=== PATIENT | male | born 1950 | race Caucasian/White ===

== ENCOUNTER → 2016-11-15 | Day surgery (SDC) | payer MEDICARE, BC ==
[~2016-11-15] MED LIST: AMLODIPINE PO; COZAAR100 MG PO; FUROSEMIDE40 MG PO; METOPROLOL SUCC50 MG PO; POTASSIUM CL ER PO
--- NOTE | ~2016-11-15 | OR ---
Unit #: [id number] #: [id number] Patient: PRANEETH CELIS [id number] [address] [address] [id number] O MR#: [id number] NAME: PRANEETH CELIS ROOM: Date of Procedure: 11/15/2016 Admission Date: 11/15/2016 Surgeon: Tony Rios M.D. : 1950 Attending Physician: Tony Rios M.D. Referring Physician: Tony Rios M.D. Primary Care Physician: Krystina Pan A.P.R.N. OPERATIVE REPORT PROCEDURES PERFORMED Colonoscopy with snare polypectomy, colonoscopy with submucosal injection and hemoclip application. INDICATIONS FOR PROCEDURE Average risk for colorectal cancer. MEDICATIONS Monitored anesthesia. POSTOPERATIVE FINDINGS 1. Polyp 8 mm in cecum, snared and sent for histopathology. 2. Polyps 6 mm in transverse colon, snared and sent for histopathology. 3. Polyp 1.5 cm in rectum, removed piecemeal. Hemoclip was applied to the polypectomy site and the area was tattooed for future reference. 4. Internal hemorrhoids. PLAN Follow up on the pathology report. Repeat colonoscopy in 1 year. DESCRIPTION OF PROCEDURE The patient was explained of the procedure, risks, and benefits along with risks and benefits of anesthesia. He was brought to the endoscopy room. Propofol anesthesia was given. Rectal exam was done, which was normal. Colonoscope was lubricated, passed up the rectum, advanced under direct vision all the way to the cecum. Cecum was identified by ileocecal valve and appendiceal orifice. Multiple polyps were seen as described. I retroflexed in the rectum, small hemorrhoids seen. The scope was gently pulled out. He tolerated it well. Dictated by... Oksana Landon/suresh TD: 11/15/2016 17:32 JOB #: [id number] CC: Rafy Us M.D. Unit #: [id number] #: [id number] Patient: PRANEETH CELIS OPERATIVE REPORT Page 1 of 1 X Tony Rios MD PROCEDURE OPERATIVE NOTE
== END | disposition home or self-care (01) ==
LOC: COPS 07:47
DX: Z12.11 Encounter for screening for malignant neoplasm of colon (principal); D12.0 Benign neoplasm of cecum; D12.3 Benign neoplasm of transverse colon; D12.8 Benign neoplasm of rectum; K64.8 Other hemorrhoids; I10 Essential (primary) hypertension; Z87.891 Personal history of nicotine dependence
CPT/HCPCS: 88305; J2250

== ENCOUNTER → 2017-02-05 | Outpatient (CLI) | payer MEDICARE, BC ==
--- NOTE | ~2017-02-05 | CR63 ---
[facility]. 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 Referring Physician: Krystina Pan A.P.R.N. Ordering Physician: Krystina Pan A.P.R.N. Primary Care Physician: Krystina Pan A.P.R.N. MEDICAL IMAGING REPORT This report is preliminary unless electronic signature is present. EXAM PA and lateral chest DATE 02/05/2017 HISTORY 66-year-old male, fever today. Low spirometry readings on Saturday. Hypertension. COMPARISON PA and lateral chest 01/20/2013. FINDINGS No acute airspace disease. Chronic-appearing interstitial markings in the lung bases may represent mild scarring. Heart size is within normal limits. No pleural effusion or pneumothorax is identified. Mild degenerative spurring in the thoracic spine. Surgical fixation of the distal right clavicle. Degenerative change of the right acromioclavicular joint. IMPRESSION 1. No acute chest findings. No significant change compared to 01/20/2013. Dictated by... Corrina Castillo M.D. THIS IS AN ELECTRONICALLY VERIFIED REPORT Corrina Castillo M.D. at 02/05/2017 5:03 PM [facility]/jason TD: 02/05/2017 12:29 [facility] A Service [facility] RADIOLOGY TEXT RESULTS PATIENT: PRANEETH CELIS [facility] [birth year] UNIT #: [id number] AGE: [address]: Krystina Pan SEX: M ORDER DR: NAOMI #: [id number] MEDICAL IMAGING REPORT Page 1 of 1
== END | disposition home or self-care (01) ==
LOC: SRAD 08:26
DX: I10 Essential (primary) hypertension (principal); R00.1 Bradycardia, unspecified; R06.00 Dyspnea, unspecified
CPT/HCPCS: 71020